=== PATIENT | male | born 1980 | race Two or more races ===

== ENCOUNTER 2019-01-16 22:44 | Emergency (ER) | payer OTHER ==
[~2019-01-16] VITALS: Ht 175.3 cm; Wt 77.1 kg
--- NOTE | 2019-01-16 23:00 | NUR ---
ED Nurse Note: PT HERE WITH C/O ABD PAIN WITH ULCERS FROM DRINKING ALCOHOL, PT IS SHAKING AND HAS MILD TREMORS, PT APPEARS TO BE UNDER THE INFLUENCE AND IS POOR HISTORIAN AND NOT ANSWERING QUESTIONS.
--- NOTE | 2019-01-16 23:07 | Emergency Room Report ---
History of Present Illness General Chief Complaint: Abdominal Pain Source: Patient, EMS Present Illness HPI Is a 38-year-old male with a history of alcohol abuse and previous abdominal surgery for bleeding. He presents with chief complaint abdominal pain. Onset for the last day. Pain is localized to the left upper quadrant. He has nausea and vomiting. Said he last drink 2 days ago. No diarrhea. Pain is 9 out of 10. Denies any bleeding. No fever chills. Nothing made it better. Nothing made it worse. Allergies: Coded Allergies: No Known Allergies (Unverified , 01/16/19) Patient History Past Medical History: see triage record, old chart reviewed Past Surgical History: other - abd Surgery Pertinent Family History: none Social History: Reports: alcohol use Immunizations: other Reviewed Nursing Documentation: PMH: Agreed; PSxH: Agreed Nursing Documentation-PMH History Of Psychiatric Problem: Yes - PTSD Review of Systems Eye: Denies: eye pain, blurred vision ENT: Denies: ear pain, nose congestion, throat swelling Respiratory: Denies: cough, shortness of breath Cardiovascular: Denies: chest pain, palpitations Gastrointestinal: Reports: abdominal pain, nausea, vomiting; Denies: diarrhea Musculoskeletal: Denies: back pain, joint pain Skin: Denies: rash Neurological: Denies: headache, numbness Endocrine: Denies: increased thirst, increased urine Hematologic/Lymphatic: Denies: easy bruising All Other Systems: negative except mentioned in HPI Physical Exam Vital Signs Date Time Temp Pulse Resp B/P (MAP) Pulse Ox O2 Delivery O2 Flow Rate FiO2 01/16/19 22:45 98.4 84 22 134/76 (95) 97 Room Air Vitals normal Sp02 EP Interpretation: reviewed, normal General Appearance: well appearing, no apparent distress, alert Head: normocephalic, atraumatic Eyes: bilateral eye PERRL, bilateral eye EOMI ENT: hearing grossly normal, normal pharynx Neck: full range of motion, supple, no meningismus Respiratory: chest non-tender, lungs clear, normal breath sounds Cardiovascular #1: regular rate, rhythm, no murmur Gastrointestinal: normal bowel sounds, no mass, no organomegaly, no bruit, non- distended, tenderness - diffuse pain Musculoskeletal: back normal, gait/station normal, normal range of motion Psychiatric: mood/affect normal Medical Decision Making Diagnostic Impression: Primary Impression: Abdominal pain Qualified Codes: R10.12 - Left upper quadrant pain Additional Impression: Alcohol intoxication Qualified Codes: F10.920 - Alcohol use, unspecified with intoxication, uncomplicated ER Course Patient with left-sided abdominal pain. This probably secondary to his alcohol. No evidence of pink otitis. He has no right upper quadrant pain. Labs unremarkable for cholecystitis. CT scan with distended gallbladder. He otherwise felt better. Will discharge home. No criteria for 5150. Last Vital Signs Date Time Temp Pulse Resp B/P (MAP) Pulse Ox O2 Delivery O2 Flow Rate FiO2 01/16/19 22:45 98.4 84 22 134/76 (95) 97 Room Air Status: improved Disposition: HOME, SELF-CARE Condition: Stable Patient Instructions: Abdominal Pain, Adult Additional Instructions: Stop abusing alcohol. Go to rehab within a week. Follow up with your doctor in 7 days. Return if worse. Aki Anderson MD Jan 16, 2019 23:06
[2019-01-16 23:54] LABS: BASOPHILS % (AUTO) 1.1 % (0.0-2.0); EOSINOPHILS % (AUTO) 0.4 % (0.0-3.0); HEMOGLOBIN 13.4 G/DL (14.2-18.0); MEAN CORPUSCULAR VOLUME 94 FL (80-99); MONOCYTES % (AUTO) 5.1 % (1.0-10.0); NEUTROPHILS % (AUTO) 75.4 % (45.0-75.0); PLATELET COUNT 143 K/UL (150-450); RED BLOOD COUNT 4.26 M/UL (4.70-6.10); RED CELL DISTRIBUTION WIDTH 12.3 % (11.6-14.8)
[2019-01-17 00:05] LABS: ANION GAP 12 mmol/L (5-15); BLOOD UREA NITROGEN 5 mg/dL (7-18); CALCIUM 8.3 MG/DL (8.5-10.1); CARBON DIOXIDE 23 MMOL/L (21-32); CHLORIDE 113 MMOL/L (98-107); CREATININE 0.8 MG/DL (0.55-1.30); POTASSIUM 3.6 MMOL/L (3.5-5.1); SODIUM 148 MMOL/L (136-145)
[2019-01-17 00:09] LABS: ALANINE AMINOTRANSFERASE 46 U/L (12-78); ALBUMIN 3.5 G/DL (3.4-5.0); ALBUMIN/GLOBULIN RATIO 0.9 (1.0-2.7); ALKALINE PHOSPHATASE 168 U/L (46-116); ASPARTATE AMINO TRANSFERASE 117 U/L (15-37); BILIRUBIN,TOTAL 0.8 MG/DL (0.2-1.0)
[2019-01-17 00:15] VITALS: BP 139/61
[2019-01-17] MEDS ORDERED: PEPCID AC20 M2 PO (00:25)
[2019-01-17 00:37] LABS: APPEARANCE,URINE CLEAR; BILIRUBIN, URINE NEGATIVE (NEGATIVE); GLUCOSE, URINE (UA) NEGATIVE (NEGATIVE); KETONES,URINE NEGATIVE (NEGATIVE); LEUKOCYTE ESTERASE ,URINE NEGATIVE (NEGATIVE); NITRITE,URINE NEGATIVE (NEGATIVE); PH,URINE 5 (4.5-8.0); UROBILINOGEN,URINE NORMAL MG/DL (0.0-1.0)
[2019-01-17 00:40] LABS: COLOR,URINE PALE YELLOW; PROTEIN,URINE NEGATIVE (NEGATIVE)
--- NOTE | 2019-01-17 00:45 | NUR ---
ED Nurse Note: ER DISCHARGE NOTE: Patient is cleared to be discharged per ERMD, pt is aox4, on room air, with stable vital signs. pt was given dc and prescription instructions, pt was able to verbalize understanding, pt id band and iv site removed without complications. pt is able to ambulate with steady gait. pt took all belongings.
[2019-01-17 00:51] VITALS: BP 139/61
--- NOTE | 2019-01-17 10:33 | Diagnostic Imaging Report ---
Indication: Abdominal pain Technique: Continuous helical transaxial imaging of the abdomen and pelvis was obtained from the lung bases to the pubic symphysis. No intravenous contrast was administered. Coronal 2-D reformats were also obtained. Automatic Exposure Control was utilized. Total Dose length Product (DLP): 826.[address] Dose Index Volume (CTDIvol): 15.91 mGy Comparison: none Findings: Lung bases are clear. The liver and spleen are prominent size. There are serpiginous structures in the upper abdomen which could be portosystemic varices. This is questionable. Please correlate clinically. The study was done without intravenous contrast material. The gallbladder is distended without definite gallstones. There is no nephrolithiasis or ascites. There is a linear calcific focus within the appendix which is short and the there is no inflammation to suggest appendicitis. Rectosigmoid resection has been the performed with sutures noted. There is no bowel evidence of bowel obstruction. There is no evidence of abscess. IMPRESSION: Hepatosplenomegaly with multiple serpiginous structures of the upper abdomen suspicious for portosystemic varices. Study is limited due to the nonadministration of contrast material. Distended gallbladder. Correlate clinically for cholecystitis. Status post sigmoid partial resection. Appendicolith. No evidence of acute appendicitis The CT scanner at [facility] is accredited by the [employer] and the scans are performed using dose optimization techniques as appropriate to a performed exam including Automatic Exposure control.
== END 2019-01-17 00:45 | disposition home or self-care (01) ==
LOC: EDBD 22:44 → EMR 23:00
DX: R10.12 Left upper quadrant pain (principal); F10.129 Alcohol abuse with intoxication, unspecified; R11.2 Nausea with vomiting, unspecified
CPT/HCPCS: 36415; 74176; 80053; 80307; 81003; 83690; 85025; 96361; 96374; 99284; G0480; J2405; 80329